=== PATIENT | male | born 1960 | race Caucasian/White ===

== ENCOUNTER 2022-06-07 14:00 | Outpatient (CLI) | payer BC, SELFPAY ==
--- NOTE | 2022-06-07 13:45 | DI.RAD_ITS ---
Exam(s) XR KNEE RT 3V AP,LAT,YOKO EXAM: XR KNEE RT 3V AP,LAT,YOKO CLINICAL HISTORY: right knee pain. TECHNIQUE: 2D digital imaging was performed of the right knee. Three views obtained. Merchant, AP an d latter views were obtained. COMPARISON: No exams were available for comparison FINDINGS: BONES: No acute fracture is present. No bony destructive lesion is seen. Orthopedic screws are seen i n the patella. JOINTS: Marked narrowing of the medial femoral tibial and the patellofemoral joint spaces is noted. Marginal osteophytes are seen in all 3 joint compartments. There is a joint effusion. SOFT TISSUE: Normal. IMPRESSION: Marked osteoarthritis of the knee. DATA REPOSITORY: RADIATION DOSE DELIVERED:
--- NOTE | 2022-06-07 13:45 | DI.RAD_ITS ---
Exam(s) XR KNEE LT 3V AP,LAT,YOKO EXAM: XR KNEE LT 3V AP,LAT,YOKO CLINICAL HISTORY: left knee pain. TECHNIQUE: 2D digital imaging was performed of the left knee. Three images were obtained. Merchant ,AP, and lateral views were obtained. COMPARISON: No priors for comparison. FINDINGS: BONES: No acute fracture is present. No bony destructive lesion is seen. JOINTS: There is moderate narrowing and mild periarticular spurring in the medial femoral tibial join t. Small spurs are seen at the posterior patella. There is a tiny joint effusion. SOFT TISSUE: Normal. IMPRESSION: Mild degenerative changes of the knee. DATA REPOSITORY: RADIATION DOSE DELIVERED:
== END 2022-06-07 14:01 | disposition home or self-care (01) ==
LOC: DIORS 14:00
PROVIDERS: PCP Family Medicine; Referring Provider Family Medicine; Visit Provider Student in an Organized Health Care Education/Training Program
DX: M17.0 Bilateral primary osteoarthritis of knee (principal)
CPT/HCPCS: 73562